=== PATIENT | female | born 1960 | race African-American/Black ===

== ENCOUNTER 2022-02-23 00:16 | Day surgery (SDC) | payer OTHER, SELFPAY ==
[2022-02-17 14:47] VITALS: BMI 46.1
--- NOTE | 2022-02-17 14:54 | PC.NURSE ---
Report to the Outpatient Waiting Room, entrance under the green pavilion located off [facility], at time _0915_ on date _[id number]_. OR Time: _1115_. - You and your visitor will be asked a series of questions to screen for COVID 19 for your protection. - Only one visitor is allowed at this time. - The patient visitor is requested to leave or wait in car when not with patient. - A mask is required within the hospital. Patients may have clear liquids (water, carbonated beverages, clear teas, apple juice) until 3 hours prior to surgery with a maximum of 20 ounces. - No food from midnight until time of surgery Take the following medications with a SIP of water the morning of surgery: ____Metoprolol Medications to discontinue per physician None Date to take last dose Please no make-up, nail yi, hairspray, perfume, deodorant, or body powder the day of surgery. No jewelry (including any body piercings) or valuables the day of surgery, leave them at home. Please take a shower or bath the night before, or the morning of, surgery with an antibacterial soap. Wear comfortable, loose fitting clothing. - Jewelry must be removed prior to entering the operating room. Rings and piercings that are not removed may be cut off. - The hospital will not accept responsibility for valuables. - Please leave all valuables, including medications, at home the day of surgery. If you are going home after surgery, a licensed pole truck driver must drive you home. - NO public transportation without another adult. - We recommend that an adult stay with you for 24 hours following discharge. - We also recommend that you do not drive, make important decision, drink alcoholic beverages, or take any drugs that were not prescribed by your health care provider for at least 24 hours after your discharge time. Follow any additional instructions given to you from your surgeon. If you or anyone in your household have experienced Covid symptoms in the past week, please notify your surgeon or the nurse liaison at the phone number below for possible testing. Telephone instructions given to ___Patient and asked if any additional questions and then verbalized understanding. Patient advised to call surgeon office or pre surgery nurse liaison [phone] if any additional questions.
--- NOTE | 2022-02-23 07:48 | WPDHPUPDATE1 ---
History and Physical Update Update Date/Time: 02/23/22 07:48 History and Physical has been reviewed, including an updated exam of the patient. There are NO changes in the patient's condition. Risks, benefits, and alternatives have been discussed and questions answered. Patient agrees to proceed with procedure.
--- NOTE | 2022-02-23 07:49 | PM.HPGS ---
History of Present Illness History of Present Illness Consent: Risks, benefits, and alternatives have been discussed and questions answered. Patient agrees to proceed with procedure. Chief complaint: Post Menopausal Bleeding Narrative: Josette Davis is a 61 year old female With postmenopausal bleeding. Patient underwent pelvic ultrasound which reveals a thickened endometrium. It was recommended to proceed with D&C hysteroscopy. Risks of infection, bleeding, perforation, and possible pathology were reviewed. Patient voices understanding and agrees to proceed. Review of Systems Review of Systems: not repeated day of surgery; patient states no changes in status PMFSH Past Medical History Medical History (Updated 02/23/22 @ 08:21 by Kendra Logan MD) HTN (hypertension) (normal spontaneous vaginal delivery) X3 Surgical History Surgical History (Updated 02/23/22 @ 08:20 by Kendra Logan MD) H/O exploratory laparotomy With fimbrioplasty and adhesiolysis in the 1980s History of hysteroscopy 2016, 2018 with myomectomy, 2019 with polyps and myomectomy Social History Social History Smoking status: Never smoker Alcohol intake: current Drinks per week: 1 Living arrangements: with family Spiritual care concerns: No Meds Home Medications and Allergies Home Medications Medication Instructions Recorded Confirmed Type losartan 50 mg-hydrochlorothiazide 1 tablet PO QAM 02/17/22 02/17/22 History 12.5 mg tablet metoprolol succinate 25 mg 25 mg PO QAM 02/17/22 02/17/22 History tablet,extended release 24 hr Allergies Allergy/AdvReac Type Severity Reaction Status Date / Time Sulfa (Sulfonamide Allergy Severe HIVES, Verified 02/17/22 14:45 Antibiotics) ITCHING Exam Const: General: healthy appearing and alert Orientation/consciousness: patient oriented x3 GI: GI Palp: Yes Soft to palpation, No Tenderness to palpation present (GI) and No Palpable mass present : External Female Exam: normal external appearance Speculum Exam - Vagina: normal appearance of the vagina and normal vaginal discharge Speculum Exam - Cervix: normal appearance of the cervix Bimanual exam- vagina & uterus: uterine size normal and consistency normal Bimanual Exam- Adnexa, other: normal adnexae and No adnexal tenderness Neuro: General: patient oriented x3 Assessment and Plan Assessment and plan (1) Post-menopausal bleeding: Code(s): N95.0 - Postmenopausal bleeding Status: Acute Assessment and Plan: Plan to proceed with D&C hysteroscopy
[2022-02-23] MEDS: LACTATED RINGERS 1,000 ML 30 ML IV CONT (10:00)
[2022-02-23 10:30] VITALS: BP 135/77; PULSE 78; RESP 16; TEMP 36.3; O2SAT 99
--- NOTE | 2022-02-23 10:37 | P.PNAN_ITS ---
Anes - Initial Pre Proc Eval Procedure: Operation Date: 02/23/22 11:15 Proposed Procedures p Hysteroscopy with Dilation and Curettage - Kendra Logan MD Date/Time: 02/23/22 10:37 Surgeon: Kendra Logan MD Pre Op Diagnosis: Post Menopausal Bleeding Patient Data Age: 61 Gender: F Height: 1.57 m Weight: 114.5 kg Allergies Allergy/AdvReac Type Severity Reaction Status Date / Time Sulfa (Sulfonamide Allergy Severe HIVES, Verified 02/17/22 14:45 Antibiotics) ITCHING Home Medications Medication Instructions Recorded Confirmed Type losartan 50 mg-hydrochlorothiazide 1 tablet PO QAM 02/17/22 02/17/22 History 12.5 mg tablet metoprolol succinate 25 mg 25 mg PO QAM 02/17/22 02/23/22 History tablet,extended release 24 hr Patient hx anesthesia problems: none Family hx anesthesia problems: none Results Review: All pre-operative results and documents have been reviewed as part of the pre- operative evaluation. PMFSH Past Medical History Medical History (Updated 02/23/22 @ 10:37 by Wes Mckeon MD) HTN (hypertension) Morbid obesity (normal spontaneous vaginal delivery) X3 Surgical History Surgical History H/O exploratory laparotomy With fimbrioplasty and adhesiolysis in the 1980s History of hysteroscopy 2016, 2018 with myomectomy, 2019 with polyps and myomectomy Social History Social History Smoking status: Never smoker Alcohol intake: current Drinks per week: 1 Living arrangements: with family Spiritual care concerns: No Anes - Eval Final PreProcedure Day of Procedure 02/23/22 10:37 Patient weight: morbidly obese Heart: regular rate and rhythm Lungs: clear to auscultation Airway: Mallampati scale class II Neurological: alert and oriented Last oral intake: >/= 8 hours ASA classification: III Emergent: no Anesthetic plan: proceed Anesthesia type and monitoring: general GIVS and standard monitoring Results Review: All pre-operative results and documents have been reviewed as part of the pre- operative evaluation. Informed Consent: The patient's anesthetic plan and its attendant risks and benefits were discussed with the patient/family/POA. Questions were solicited and answers provided to the satisfaction of the patient/family/POA.
[2022-02-23] MEDS: ACETAMINOPHEN 500 MG TABLET 1000 MG PO (11:15)
--- NOTE | 2022-02-23 12:13 | P.OP_ITS ---
Procedure Note - Detailed Date of Procedure 02/23/22 Pre-op Diagnosis Post Menopausal Bleeding Post-op Diagnosis Same Procedure Performed D&C hysteroscopy with MyoSure resection of polyp Surgeon Kendra Logan MD Anesthesia MAC and Local Findings Uterus sounds to 9cm. There was a polyp in the left cornu. Small fibroids noted that are sessile and not interfering with visualization. Remainder of the endometrium appears atrophic. Description of Procedure The patient was taken to the operating room and placed under anesthesia in the dorsal lithotomy position. She was prepped and draped in the usual sterile fashion. Cloquet speculum was placed in the vagina and the cervix grasped on the anterior lip with a tenaculum. The cervix is injected in each quadrant with 1% lidocaine. The uterus sounds to 9cm. The cervix is serially dilated to an 8 Hegar. The diagnostic hysteroscope was placed with the above-stated findings. The MyoSure device is opened and placed and the polyp removed under direct visualization. The instruments were removed and the medium sharp curette used to curette the endometrium until a good uterine cry was noted in all areas. Minimal materials obtained consistent with the atrophic appearance. All instruments are removed. Sponge, needle, and instrument counts are correct per the OR staff. Patient is awakened from anesthesia and taken to recovery in stable condition. Estimated Blood Loss 5 Drains No Packing No Pathology Yes (Endometrial shavings and curettings) Complications No immediate complications Condition Stable Disposition PACU
[2022-02-23 12:25] VITALS: BP 139/92; PULSE 72; RESP 16; O2SAT 100
[2022-02-23] MEDS: fentaNYL CITRATE INJ (*CRX) 100 MCG/2 ML VIAL 25 MCG IV PUSH ×2 (12:29→12:32)
[2022-02-23 12:53] VITALS: BP 154/87; PULSE 65; RESP 16
[2022-02-23 13:30] VITALS: BP 154/89; PULSE 61; RESP 14
[2022-02-23] MEDS: oxyCODONE HCL (*CRX) 5 MG TAB IR PO (13:37)
[2022-02-23 14:00] VITALS: BP 134/81; PULSE 61; RESP 12
== END 2022-02-23 14:40 | disposition home or self-care (01) ==
PROVIDERS: Visit Provider Obstetrics & Gynecology Gynecology
PROC: 0U5B8ZZ Destruction of Endometrium, Via Natural or Artificial Opening Endoscopic (ICD-10-PCS; CPT 58563; principal; 2022-02-23 11:15)
DX: N95.0 Postmenopausal bleeding (principal); N84.0 Polyp of corpus uteri; I10 Essential (primary) hypertension; E66.01 Morbid (severe) obesity due to excess calories; Z68.41 Body mass index [BMI] 40.0-44.9, adult
CPT/HCPCS: 58558; 88305; A9270; J2250; J2405; J2704; J3010; J7030; J7120

== ENCOUNTER 2023-08-19 12:46 | Outpatient (CLI) | payer OTHER, SELFPAY ==
[2023-08-19 13:32] LABS: Anion Gap 4 mmol/L (8-16); Blood Urea Nitrogen 10 mg/dL (7-17); Calcium 9.7 mg/dL (8.4-10.2); Carbon Dioxide 29 mmol/L (22-30); Chloride 107 mmol/L (98-107); Estimated Glomerular Filt Rate > 60; Glucose 83 mg/dL (65-110); Potassium 3.9 mmol/L (3.4-5.0); Sodium 140 mmol/L (137-145)
== END 2023-08-19 12:47 | disposition home or self-care (01) ==
LOC: ANHLAB 12:52
PROVIDERS: Visit Provider Anesthesiology
DX: Z01.818 Encounter for other preprocedural examination (principal); I10 Essential (primary) hypertension
CPT/HCPCS: 36415; 80048

== ENCOUNTER 2023-08-23 02:00 | Day surgery (SDC) | payer OTHER, SELFPAY ==
--- NOTE | 2023-08-16 09:31 | PC.NURSE ---
Report to the Outpatient Waiting Room, entrance under the green pavilion located off [facility], at time 0615 on date _08/23/23_. Planned Procedure Time: 08__. Time changes happen often and if your time is changed the preop area will call you the afternoon before. - You and your visitor will be asked to self-screen and do not enter if you have any COVID symptoms. - A mask is optional within the hospital at this time. Patients may have clear liquids (water, carbonated beverages, clear teas, apple juice) until 3 hours prior to surgery with a maximum of 20 ounces. - No food from midnight until time of surgery - Infants may have breast milk until 4 hours before surgery, formula 6 hours prior to surgery. - Children will be allowed to drink immediately following surgery. If applicable, please bring a bottle or sippy cup to assist with drinking. Juice, water, soda, and popsicles are readily available. For infants on formula, please bring formula the day of surgery. Pacifiers are allowed. Take the following medications with a SIP of water the morning of surgery: ___METOPROLOL DO NOT STOP ANY OF YOUR OTHER PRESCRIPTION MEDICATIONS PRIOR TO SURGERY ?EXCEPT THE FOLLOWING Medications to discontinue per physician NONE Date to take last dose Please no make-up, nail azeri, hairspray, perfume, deodorant, or body powder the day of surgery. No jewelry (including any body piercings) or valuables the day of surgery, leave them at home. Please take a shower or bath the night before, or the morning of, surgery with an antibacterial soap. Wear comfortable, loose fitting clothing. Children are encouraged to wear pajamas. - Jewelry must be removed prior to entering the operating room. Rings and piercings that are not removed may be cut off. - The hospital will not accept responsibility for valuables. - Please leave all valuables, including medications, at home the day of surgery. If you are going home after surgery, a licensed milk driver must drive you home. - NO public transportation without another adult if you receive anesthesia. - We recommend that an adult stay with you for 24 hours following discharge. - We also recommend that you do not drive, make important decision, drink alcoholic beverages, or take any drugs that were not prescribed by your health care provider for at least 24 hours after your discharge time. For Pediatric surgeries, we recommend two adults accompany the child home. Follow any additional instructions given to you from your surgeon. If you or anyone in your household have experienced Covid symptoms in the past week, please notify your surgeon or the nurse liaison at the phone number below for possible testing. Telephone instructions given to patient and asked if any additional questions and then verbalized understanding. Patient advised to call surgeon office or pre surgery nurse liaison [phone] if any additional questions.
[2023-08-16 09:36] VITALS: BMI 46.3
[2023-08-23 06:55] VITALS: BP 153/91; PULSE 77; RESP 14; TEMP 36.4; O2SAT 99
[2023-08-23] MEDS: ACETAMINOPHEN 500 MG TABLET 1000 MG PO (06:55)
--- NOTE | 2023-08-23 07:34 | WPDHPUPDATE1 ---
History and Physical Update Update Date/Time: 08/23/23 07:34 History and Physical has been reviewed, including an updated exam of the patient. There are NO changes in the patient's condition. Risks, benefits, and alternatives have been discussed and questions answered. Patient agrees to proceed with procedure.
--- NOTE | 2023-08-23 07:35 | PM.HPGS ---
History of Present Illness History of Present Illness Consent: Risks, benefits, and alternatives have been discussed and questions answered. Patient agrees to proceed with procedure. Chief complaint: postmenopausal bleeding Narrative: Josette Davis is a 63 year old female with postmenopausal bleeding. Patient has undergone D&C hysteroscopy x4 with polyps found at 3 of the. Most recent was February of 2022. Patient has been on Prometrium 300mg. Patient began having bleeding in late May. It was recommended to undergo D&C hysteroscopy to further evaluate the endometrium. Risks of infection, bleeding, perforation, and possible pathology are reviewed. Patient voices understanding and agrees to proceed. Review of Systems Review of Systems: not repeated day of surgery; patient states no changes in status PMFSH Past Medical History Medical History (Updated 08/23/23 @ 07:37 by Kendra Logan MD) HTN (hypertension) Hypercholesterolemia Morbid obesity (normal spontaneous vaginal delivery) X3 Surgical History Surgical History (Updated 08/23/23 @ 07:37 by Kendra Logan MD) H/O exploratory laparotomy With fimbrioplasty and adhesiolysis in the 1980s History of hysteroscopy 2015, 2018 with myomectomy, 2019 with polyps and myomectomy, 2021 with polyps Social History Social History Smoking status: Never smoker Alcohol intake: current Drinks per week: 1 Alcohol use details: 2 PER MONTH Substance use: never Living arrangements: with family Spiritual care concerns: No Meds Home Medications and Allergies Home Medications Medication Instructions Recorded Confirmed Type losartan 50 mg-hydrochlorothiazide 1 tablet PO QAM 02/17/22 08/16/23 History 12.5 mg tablet metoprolol succinate 25 mg 25 mg PO QAM 02/17/22 08/23/23 History tablet,extended release 24 hr Allergies Allergy/AdvReac Type Severity Reaction Status Date / Time Sulfa (Sulfonamide Allergy Severe HIVES, Verified 08/23/23 07:12 Antibiotics) ITCHING Vital Signs Vital Signs - 24 hr 08/23/23 06:55 Temperature 97.5 F L Pulse Rate 77 Respiratory Rate 14 Blood Pressure 153/91 H Pulse Oximetry 99 Oxygen Delivery Room Air Exam Const: General: obese ( BMI of 42.7) Orientation/consciousness: patient oriented x3 Resp: Effort & Inspection: normal respiratory effort : External Female Exam: normal external appearance Speculum Exam - Vagina: normal appearance of the vagina and normal vaginal discharge Speculum Exam - Cervix: normal appearance of the cervix Bimanual exam- vagina & uterus: uterine size normal and consistency normal Bimanual Exam- Adnexa, other: normal adnexae and No adnexal tenderness Neuro: General: patient oriented x3 Assessment and Plan Assessment and plan (1) Post-menopausal bleeding: Code(s): N95.0 - Postmenopausal bleeding Status: Acute Assessment and Plan: with history of polyps the plan is to proceed with D&C hysteroscopy
--- NOTE | 2023-08-23 07:39 | P.PNAN_ITS ---
Anes - Initial Pre Proc Eval Procedure: Operation Date: 08/23/23 08:15 Proposed Procedures p Hysteroscopy Dilation and Curettage - Kendra Logan MD Date/Time: 08/23/23 07:39 Surgeon: Kendra Logan MD Pre Op Diagnosis: postmenopausal bleeding Patient Data Age: 63 Gender: F Height: 1.57 m Weight: 118.4 kg Last Vital Signs Temp 36.4 C L 08/23/23 06:55 Pulse 77 08/23/23 06:55 Resp 14 08/23/23 06:55 BP 153/91 H 08/23/23 06:55 Pulse Ox 99 08/23/23 06:55 O2 Del Method Room Air 08/23/23 06:55 Allergies Allergy/AdvReac Type Severity Reaction Status Date / Time Sulfa (Sulfonamide Allergy Severe HIVES, Verified 08/23/23 07:12 Antibiotics) ITCHING Home Medications Medication Instructions Recorded Confirmed Type losartan 50 mg-hydrochlorothiazide 1 tablet PO QAM 02/17/22 08/16/23 History 12.5 mg tablet metoprolol succinate 25 mg 25 mg PO QAM 02/17/22 08/23/23 History tablet,extended release 24 hr Patient hx anesthesia problems: post op nausea/vomiting Family hx anesthesia problems: none Results Review: All pre-operative results and documents have been reviewed as part of the pre- operative evaluation. PMFSH Past Medical History Medical History (Updated 08/23/23 @ 07:37 by Kendra Logan MD) HTN (hypertension) Hypercholesterolemia Morbid obesity (normal spontaneous vaginal delivery) X3 Surgical History Surgical History (Updated 08/23/23 @ 07:37 by Kendra Logan MD) H/O exploratory laparotomy With fimbrioplasty and adhesiolysis in the 1980s History of hysteroscopy 2016, 2018 with myomectomy, 2019 with polyps and myomectomy, 2021 with polyps Social History Social History Smoking status: Never smoker Alcohol intake: current Drinks per week: 1 Alcohol use details: 2 PER MONTH Substance use: never Living arrangements: with family Spiritual care concerns: No Anes - Eval Final PreProcedure Day of Procedure 08/23/23 07:39 Patient weight: morbidly obese Heart: regular rate and rhythm Lungs: clear to auscultation Airway: Mallampati scale class III Neurological: alert and oriented Last oral intake: >/= 8 hours ASA classification: III Emergent: no Anesthetic plan: proceed Anesthesia type and monitoring: general GIVS and LMA and standard monitoring Results Review: All pre-operative results and documents have been reviewed as part of the pre- operative evaluation. Informed Consent: The patient's anesthetic plan and its attendant risks and benefits were discussed with the patient/family/POA. Questions were solicited and answers provided to the satisfaction of the patient/family/POA.
[2023-08-23] MEDS: KETOROLAC 15 MG/ML VIAL (*BKC) IV PUSH (08:25)
[2023-08-23 09:05] VITALS: BP 137/74; PULSE 70; RESP 16; O2SAT 96
[2023-08-23] MEDS: LACTATED RINGERS 1,000 ML 30 ML IV CONT (09:05)
[2023-08-23 09:35] VITALS: BP 139/66; PULSE 66; RESP 20
[2023-08-23] MEDS: oxyCODONE HCL (*CRX) 5 MG TAB IR PO (09:38)
[2023-08-23 10:00] VITALS: BP 120/60; PULSE 59; RESP 20
[2023-08-23 10:15] VITALS: BP 112/70; PULSE 70; RESP 20
--- NOTE | 2023-08-23 10:39 | P.OP_ITS ---
Procedure Note - Detailed Date of Procedure 08/23/23 Pre-op Diagnosis postmenopausal bleeding Post-op Diagnosis Same Procedure Performed D&C hysteroscopy with myomectomy and polypectomy Surgeon Kendra Logan MD Anesthesia MAC Findings The uterus sounds to 9cm. There is a polyp at the left cornua. There is an anterior sessile fibroid. The remainder of the endometrium appears atrophic. Description of Procedure The patient is taken to the operating room and placed under anesthesia in the dorsal lithotomy position. She was prepped and draped in usual sterile fashion. The bivalve speculum was placed in the vagina and the cervix grasped on the ant erior lip with a tenaculum. The uterus is sounded to 9cm. The diagnostic hysteroscope was placed and with the above-stated findings the Aveeta Flex resection device is opened and placed. The polyp was removed in its entirety. The surface of the fibroid appeared vascular the decision was made to proceed with resection. The surface was resected and as resection continued the fibroid continued to grow into the endometrial cavity. Resection continued until the 3rd 3L bag was hung. Decision was made to stop resection as the port of the fibroid we were and was all very calcified with no vascularity. The hysteroscope was removed and the myoma graspers used to remove several additional pieces of fibroid. The endometrium was then sharply curetted until a good uterine cry was noted in all areas. All instruments are removed. Sponge, needle, and instrument counts are correct per the OR staff. The patient was awakened from anesthesia and taken to recovery in stable condition. Estimated Blood Loss 5 Drains No Packing No Pathology Yes ( Endometrial shavings and curettings) Complications No immediate complications Condition Stable Disposition PACU
== END 2023-08-23 10:31 | disposition home health service (06) ==
PROVIDERS: Visit Provider Obstetrics & Gynecology Gynecology
PROC: 0U5B8ZZ Destruction of Endometrium, Via Natural or Artificial Opening Endoscopic (ICD-10-PCS; CPT 58563; principal; 2023-08-23 08:15)
DX: N95.0 Postmenopausal bleeding (principal); N84.0 Polyp of corpus uteri; D25.9 Leiomyoma of uterus, unspecified; I10 Essential (primary) hypertension; E78.00 Pure hypercholesterolemia, unspecified; E66.01 Morbid (severe) obesity due to excess calories; Z68.42 Body mass index [BMI] 45.0-49.9, adult; Z98.890 Other specified postprocedural states
CPT/HCPCS: 58558; 36415; 80048; 88305; A9270; J1100; J1885; J2250; J2405; J2704; J3010; J7120

== ENCOUNTER 2025-01-29 01:04 | Day surgery (SDC) | payer OTHER, SELFPAY ==
[2025-01-23 14:56] VITALS: BMI 44.4
--- NOTE | 2025-01-23 15:28 | PC.NURSE ---
Report to the Outpatient Waiting Room, entrance under the green pavilion located off [facility], at time _0745 on date _01/29/25 . Planned Procedure Time: _0945 .? Time changes happen often and if your time is changed the preop area will call you the afternoon before. - You and your visitor will be asked to self-screen and do not enter if you have any COVID symptoms. Please call surgeon if you need to reschedule. - A mask is optional within the hospital at this time. Patients may have clear liquids (water, carbonated beverages, clear teas, apple juice) until 3 hours prior to surgery with a maximum of 20 ounces. - No food from midnight until time of surgery and no smoking, or chewing tobacco (or any form of nicotine). No chewing gum, candy or mints. Take only the following medications with a SIP of water on the morning of surgery: ___METOPROLOL DO NOT STOP ANY OF YOUR OTHER PRESCRIPTION MEDICATIONS PRIOR TO SURGERY EXCEPT THE FOLLOWING Hold all vitamins and supplements for 3 days per anesthesiologist. Medications to discontinue per physician N/A Date to take last dose__N/A Please no make-up, nail khmer, hairspray, perfume, deodorant, or body powder the day of surgery.? No jewelry (including any body piercings) or valuables the day of surgery, leave them at home.? Please take a shower or bath the night before, or the morning of, surgery with an antibacterial soap.? Wear comfortable, loose fitting clothing.? - Jewelry must be removed prior to entering the operating room.? Rings and piercings that are not removed may be cut off. - The hospital will not accept responsibility for valuables.? - Please leave all valuables, including medications, at home the day of surgery. If you are going home after surgery, a licensed racing car driver must drive you home.? - NO public transportation without another adult if you receive anesthesia. - We recommend that an adult stay with you for 24 hours following discharge. - We also recommend that you do not drive, make important decision, drink alcoholic beverages, or take any drugs that were not prescribed by your health care provider for at least 24 hours after your discharge time. Follow any additional instructions given to you from your surgeon. Telephone instructions given to __NORMA and asked if any additional questions and then verbalized understanding. Patient advised to call surgeon office or pre surgery nurse liaison [phone] if any additional questions.
--- OUTSIDE RECORDS SUMMARY | 2025-01-29 01:07 | XMS_ITS | Referral Summary ---
Author Organization [address] Address [address] [address] Care Team Providers Care Home Appliances Mechanic Name Role Phone Tana Allen Primary Care Provider [phone] Ezra Ventura MD Unavailable [phone] Jesus Barreto MD Unavailable [phone] Bry Mosqueda MD Unavailable [phone] Kendra Logan MD Unavailable [phone] Encounters Date Type Department Care Team Description 01/26/2025 8:07 AM CDT - 01/26/2025 11:59 PM CDT Hospital Encounter [facility] Building [address] [place] [address] Hypertension, essential Discharge Disposition: Discharge to home or self care 01/25/2025 Results Follow-Up [facility] [address] [address] Tana Allen PA CBC with auto differential, Comprehensive metabolic panel, Differential, auto, Additional followed-up results: 2 01/25/2025 10:[address] [facility] Building [address] [place] [id number] Arrived 01/25/2025 10:25 AM CDT Lab [facility] Office Building [address] [place] [id number] Hypertension, essential; Mixed hyperlipidemia from Last 3 Months Allergies Active Allergy Reactions Criticality Noted Date Comments Sulfa (Sulfonamide Antibiotics) Itching,Rash Medium Medications hydroCHLOROthia zide 12.5 mg tabletIndicatio ns:Hypertension , essential TAKE 0.5 TABLETS BY MOUTH DAILY. 45 tablet 12/22/2024 Active losartan (COZAAR) 50 mg tablet TAKE 1 TABLET BY MOUTH EVERY DAY 90 tablet 12/22/2024 Active metoprolol XL (TOPROL-XL) 25 mg extended release tabletIndicatio ns:hypertension Take 1 tablet (25 mg total) by mouth daily after lunch 90 tablet 1 12/22/2024 Active Active Problems Problem Noted Date Diagnosed Date Diverticulosis 05/11/2024 Class 3 severe obesity due t o excess calories with serious comorbidity and body mass index (BMI) of 40.0 to 44.9 in adult 01/06/2021 Assessment & Plan (03/25/2023 9:19 AM CDT): Reviewed BMI Focus on healthy diet options Work on healthy changes Assessment & Plan (02/09/2022 12:15 PM CDT): Reviewed BMI Focus on healthy diet options Work on healthy changes Assessment & Plan (01/06/2021 11:22 AM CDT): Reviewed BMI Focus on healthy diet options Work on healthy changes Hypertension, essential 01/03/2021 Assessment & Plan (09/26/2024 11:38 AM CDT): Chronic. Patient reports side effects of hydrochlorothiazide. Will reduce hydrochlorothiazide to 6.25 mg daily. Continue losartan 50 mg daily and metoprolol XL 25 mg daily. Follow-up in 1 month for blood pressure check/annual physical. Get labs done prior to that visit. Patient voiced agreement with this plan. Orders: hydroCHLOROthiazide 12.5 mg tablet; Take 0.5 tablets (6.25 mg total) by mouth daily CBC with auto differential; Future Comprehensive metabolic panel; Future Lipid panel; Future Albumin Creatinine Ratio, Urine; Future Assessment & Plan (03/25/2023 9:19 AM CDT): Chronic and controlled. Continue current management. Work on healthy low-salt diet. Increase physical activity. Labs ordered. Assessment & Plan (02/09/2022 4:16 PM CDT): Blood pressure today is well controlled. I have asked her to keep track of her blood pressure daily for the next 2 weeks. She will then send me her blood pressure log to review. If she is continuing to have elevated readings will adjust her medication. Get at least 150 minutes of exercise per week. Labs reviewed today. Assessment & Plan (01/06/2021 11:22 AM CDT): Blood pressure well controlled on current regimen. Continue current medication. Patient denies needing a refill today. She is up-to-date on labs. Continue with low-salt diet. Mixed hyperlipidemia 01/03/2021 Assessment & Plan (09/26/2024 11:38 AM CDT): Chronic and improved on last labs. Due for repeat, ordered today. Follow-up next month at annual physical. Orders: CBC with auto differential; Future Comprehensive metabolic panel; Future Lipid panel; Future Assessment & Plan (03/25/2023 9:23 AM CDT): Patient declines statin therapy. Discussed that since her LDL is above 190 it is advised to take a statin to lower risk of cardiovascular disease. Discussed that her ASCVD risk score is 9.3%. Patient understands the risks of not taking a statin. Discussed following a healthy low-fat diet. Get at least 150 minutes of exercise per week. Labs ordered today. Assessment & Plan (02/09/2022 4:21 PM CDT): Chronic and uncontrolled. LDL significantly elevated at 213. Discussed with patient that when elevated >190 it is recommended to start high intensity statin. Patient was agreeable. Side effects discussed. Will recheck lipid panel and LFTs in 3 months. Discussed healthy diet changes. Get at least 150 minutes of exercise per week. Assessment & Plan (01/06/2021 11:28 AM CDT): Chronic and worsening. Discussed with patient that based on her lab results it is strongly advised that she be started on statin therapy. Patient voiced understanding of this but wishes to continue with diet and exercise. Patient states she has lost 12 lb. Patient agreeable to rechecking labs in 1 month (3 months from when last checked). If labs are still elevated then she will consider statin therapy. Patient understands that she is at a high risk for cardiovascular events including heart attack and stroke. Discussed lifestyle changes including getting at least 150 minutes of exercise per week. Cut back on red meats. Vitamin D deficiency 01/03/2021 Assessment & Plan (03/25/2023 9:22 AM CDT): Patient requesting lab order. Assessment & Plan (02/09/2022 4:25 PM CDT): Recommend daily vitamin D3 2000 IU supplement. We will check vitamin-D level in 3 months. Assessment & Plan (01/06/2021 11:24 AM CDT): Discussed with patient that her most recent vitamin-D level was 27. Although this is in the normal range, ideally it should be above 40. She will start taking the once weekly supplement again. Resolved Problems Problem Noted Date Diagnosed Date Resolved Date Diverticulitis 05/18/2024 06/05/2024 Routine adult health maintenance 01/03/2021 10/15/2024 Overview (05/17/2024): Health Maintenance: -PCV20: N/A -Tdap vaccine: 2020 -Influenza vaccine: due -Shingles vaccine: due -Colonoscopy: 01/07/2022 (5 year recall), 04/27/24 -Last WWE: 12/04/22 (SOIL CHECKER Dr. Logan) -Last Mammogram: 02/08/23 -Last DEXA: 12/11/21 -Last eye exam: N/A -Last MHA: N/A Assessment & Plan (03/25/2023 9:22 AM CDT): Health Maintenance: -PCV20: N/A -Tdap vaccine: 2020 -Influenza vaccine: due -Shingles vaccine: due -Colonoscopy: 01/07/2022 (5 year recall) -Last WWE: 12/2022 (SOIL CHECKER Dr. Logan) -Last Mammogram: 02/08/23 -Last DEXA: 12/11/21 -Last eye exam: N/A -Last MHA: N/A Patient due for flu and Shingrix. Declines vaccines today. Annual labs ordered. Work on healthy diet and exercise habits. See us annually for routine physicals. Assessment & Plan (02/09/2022 4:26 PM CDT): Health Maintenance: -PCV13 vaccine: N/A -PPSV23 vaccine: N/A -Tdap vaccine: 2020 -Influenza vaccine: due -Shingles vaccine: due -Colonoscopy: 01/2022 -Last WWE: 10/2020 (SOIL CHECKER) -Last Mammogram: 01/26/22 -Last DEXA: 12/11/21 -Last eye exam: N/A -Last MHA: N/A Patient due for Shingrix. She would like to hold off on this as she is planning to get her COVID booster soon. Will request her colonoscopy and Pap smear reports. Annual labs reviewed today. Discussed healthy diet and exercise changes. Assessment & Plan (01/06/2021 11:23 AM CDT): Health Maintenance: -PCV13 vaccine: N/A -PPSV23 vaccine: N/A -Tdap vaccine: 2020 -Influenza vaccine: due -Shingles vaccine: due -Colonoscopy: 2019 (Dr. Teixeira) -Last WWE: 10/2020 (SOIL CHECKER) -Last Mammogram: 01/16/20, has next one scheduled -Last DEXA: N/A -Last eye exam: N/A -Last MHA: N/A Patient due for Tdap, she was agreeable to getting this today. We discussed the Shingrix vaccine, she does not wish to get this today. She is up-to-date on colonoscopy. Will request report. She is due for mammogram next month, she has this scheduled already. She is up-to-date on Pap smear. Immunizations Immunization Administration Dates Next Due Influenza, Unspecified 05/11/2024(Deferr ed: Patient Refused),03/25/2023(Deferred: Patient Refused),04/11/2022(Deferred: Patient Refused),04/11/2021(Deferred: Patient Refused),04/11/2020(Deferred: Patient Refused) MMR 01/18/2006,05/16/1992 Meningococcal MCV4P (Menactra) 10/16/1985 OPV 02/08/1989,10/19/1986,11/21/1985 PPD TEST 03/03/2013, 8,08/30/2007,09/06/2006,0 12/15/2005,11/14/2005,05/20/2004,11/12/1999,,10/12/1995,01/03/1992,05/18/1989,09/1985 TD Preservative Free 06/22/1996,10/16/1985 Td, adsorbed 12/16/2003 Tdap 01/06/2021,03/03/2013 Typhoid Inactivated 01/20/1987 Social History Tobacco Use Types Packs/Day Years Used Date Smoking Tobacco: Never Passive Smoke Exposure: Never Smokeless Tobacco: Never Tobacco Cessation:Counseling Given: Not Answered AUDIT-C Answer Date Recorded Q1: How often do you have a drink containing alc ohol? Monthly or less 09/26/2024 Q2: How many drinks containi ng alcohol do you have on a typical day when you are drinking? 1 or 2 09/26/2024 Q3: How often do you have si x or more drinks on one occasion? Never 09/26/2024 PHQ-2 Answer Date Recorded PHQ-2 Total Score (If total score is 3 or more points, staff should administer the PHQ-9) 0 09/26/2024 Personal Safety Answer Date Recorded Have you ever been in or are you currently in a harmful physical or emotional relationship or is someone making you feel afraid or unsafe? 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 Gender Identity Not on file Sexual Orientation Not on file Last Filed Vital Signs Vital Sign Reading Time Taken Comments Blood Pressure 132/84 10/13/2024 9:23 AM CDT Pulse 86 09/26/2024 11:08 AM CDT Temperature 36.6 C (97.9 F) 09/26/2024 11:08 AM CDT Respiratory Rate 16 09/26/2024 11:08 AM CDT Oxygen Saturation 97% 09/26/2024 11:08 AM CDT Inhaled Oxygen Concentration - - Weight 111.1 kg (245 lb) 10/13/2024 9:23 AM CDT Height 157.5 cm (5' 2.01) 10/13/2024 9:23 AM CD T Body Mass Index 44.8 10/13/2024 9:23 AM CDT Plan of Treatment Not on file Goals Goal Patient Goal Type Associated Problems Recent Progress Patient-Stated? Author Colorectal Pre-Surgical Steps Care Plan Colorectal Pre-Surgical Plan Bere Stephens RN Procedures Procedure Name Priority Date/Time Associated Diagnosis Comments DIFFERENTIAL AUTO Routine 01/25/2025 10: 46 AM CDT Hypertension, essential Mixed hyperlipidemia CBC WITH AUTO DIFFERENTIAL Routine 01/25/2025 10:46 AM CDT Hypertension, essential Mixed hyperlipidemia EGFR Routine 01/25/2025 10:40 AM CDT Hypertension, essential Mixed hyperlipidemia LIPID PANEL Routine 01/25/2025 10:40 AM CDT Hypertension, essential Mixed hyperlipidemia COMPREHENSIVE METABOLIC PANEL Routine 01/25/2025 10:40 AM CDT Hypertension, essential Mixed hyperlipidemia ALBUMIN CREATININE RATIO, URINE Routine 01/25/2025 7:40 AM CDT Hypertension, essential HEPATITIS C ANTIBODY Routine 10/15/2023 10:26 AM CDT Routine adult health maintenance Need for hepatitis C screening test HM MAMMOGRAPHY Routine 02/08/2023 HM PAP SMEAR Routine 12/04/2022 COLONOSCOPY Routine 01/07/2022 from Last 3 Months or Most Recently Relevant to Health Maintenance Results * Differential, auto (01/25/2025 10:46 AM CDT) Neutrophil abs 5.12 1.50 - 6.50 K/cumm Comment:Testing performed by : [address] [address] Imm gran abs 0.03 0.00 - 0.10 K/cumm [facility] Comment:Testing performed by : [address] [address] Lymphocyte abs 2.58 0.80 - 3.30 K/cumm [facility] Comment:Testing performed by : [address] [address] Monocyte abs 0.72 0.20 - 0.80 K/cumm [facility] Comment:Testing performed by : [address] [address] Eosinophil abs 0.15 0.00 - 0.50 K/cumm [facility] Comment:Testing performed by : [address] [address] Basophil abs 0.05 0.00 - 0.10 K/cumm [facility] Comment:Testing performed by : [address] [address] Neutrophil pct 59.3 % [facility] Comment: Interpretive Data Percent cell count reference ranges are not reported, since discordance with absolute values may lead to misinterpretation of CBC data. Current Interpretive Data was last revised on 2017. Testing performed by: [address] [address] Imm gran pct 0.3 % [facility] Comment: Interpretive Data Percent cell count reference ranges are not reported, since discordance with absolute values may lead to misinterpretation of CBC data. Current Interpretive Data was last revised on 2017. Testing performed by: [address] [address] Lymphocyte pct 29.8 % [facility] Comment: Interpretive Data Percent cell count reference ranges are not reported, since discordance with absolute values may lead to misinterpretation of CBC data. Current Interpretive Data was last revised on 2017. Testing performed by: [address] [place]., [address] Monocyte pct 8.3 % [facility] Comment: Interpretive Data Percent cell count reference ranges are not reported, since discordance with absolute values may lead to misinterpretation of CBC data. Current Interpretive Data was last revised on 2017. Testing performed by: [address] [address] Eosinophil pct 1.7 % [facility] Comment: Interpretive Data Percent cell count reference ranges are not reported, since discordance with absolute values may lead to misinterpretation of CBC data. Current Interpretive Data was last revised on 2017. Testing performed by: [address] [address] Basophil pct 0.6 % [facility] Comment: Interpretive Data Percent cell count reference ranges are not reported, since discordance with absolute values may lead to misinterpretation of CBC data. Current Interpretive Data was last revised on 2017. Testing performed by: [address] [address] Blood 01/25/2025 10:4 6 AM CDT 01/25/2025 12:48 PM CDT Tana PATTERSON LAB BLOOD ORDERABLES Halie l Result [facility] [address] [facility] Department [place] [address] * (ABNORMAL) CBC with auto differential (01/25/2025 10:46 AM CDT) Pathologist [facility] WBC 8.65 3.80 - 9.90 K/cumm Comment:Testing performed by : [address] [address] Hgb 14.1 11.9 - 15.5 g/dL [facility] Comment:Testing performed by : [address] [address] Hct 45.3 35.6 - 45.5 % [facility] Comment:Testing performed by : [address] [address] Plt 262 150 - 400 K/cumm [facility] Comment:Testing performed by : [address] [address] MPV 11.9 9.1 - 12.3 fL [facility] Comment:Testing performed by : [address] [address] RBC 5.54(H) 3.90 - 5.20 M/cumm [facility] Comment:Testing performed by : [address] [address] MCV 81.8 81.3 - 96.4 fL [facility] Comment:Testing performed by : [address] [address] MCH 25.5(L) 27.1 - 33.3 pg [facility] Comment:Testing performed by : [address] [address] MCHC 31.1(L) 32.3 - 35.7 g/dL [facility] Comment:Testing performed by : [address] [address] RDW CV 15.4(H) 11.1 - 14.9 % [facility] Comment:Testing performed by : [address], [address] RDW SD 45.8 35.7 - 48.1 fL [facility] Comment:Testing performed by : [address] [address] NRBC abs 0.00 0.00 - 0.01 K/cumm [facility] Comment:Testing performed by : [address] [address] Blood 01/25/2025 10:4 6 AM CDT 01/25/2025 12:48 PM CDT us Tana PATTERSON LAB BLOOD ORDERABLES Halie l Result [facility] [address] [facility] Department of Laboratories [place], [place] [id number] * eGFR (01/25/2025 10:40 AM CDT) eGFR 89 >=60 mL/min/1. 73 m2 Comment: Interpretive Data Reference Interval Normal >/= 90 mL/min/1.73m2 Mildly decreased* 60 - 89 mL/min/1.73m2 Mildly to moderately decreased 45 - 59 mL/min/1.73m2 Moderately to severely decreased 30 - 44 mL/min/1.73m2 Severely decreased 15 - 29 mL/min/1.73m2 Kidney Failure < 15 mL/min/1.73m2 *Relative to young adult level Estimated glomerular filtration rate is determined by the 2020 CKD-EPI equation recommended by the National Kidney Foundation (A Unifying Approach to GFR Estimation: Recommendations of the NKF-ASK Task Force on Reassessing the Inclusion of Race in Diagnosing Kidney Disease, JASN 2020). The CKD-EPI equation should not be used for patients with unstable renal function and has not been validated in children and those over 70. Current interpretive data was last reviewed 2021. Testing performed by: [facility], [address] [place] [address]., [address] Blood 01/25/2025 10:4 0 AM CDT 01/25/2025 12:44 PM CDT Tana PATTERSON LAB BLOOD ORDERABLES Halie box Result [facility] [address] [facility] Department [place] [address] * (ABNORMAL) Lipid panel (01/25/2025 10:40 AM CDT) Cholesterol 248(H) 30 - 199 mg/dL Comment: Interpretive Data Ages < or = 19 years Acceptable: <170 mg/dL Borderline high: 170-199 mg/dL High: >or= 200 mg/dL Ages > or = 20 years Desirable: <200 mg/dL Borderline high: 200-239 mg/dL High: >or= 240 mg/dL Literature References: 1. Expert Panel on Integrated Guidelines for Cardiovascular Health and Risk Reduction in Children and Adolescents. Pediatrics 2011;128:S213 2. NCEP Expert Panel. Circulation 2004;110:227 Current Interpretive Data was last revised on 2018. Testing performed by: [address] [address] Triglycerides 116 <=149 mg/dL [facility] Comment: Interpretive Data Ages < or = 9 years Acceptable: <75 mg/dL Borderline high: 75-99 mg/dL High: >or= 100 mg/dL Ages 10 to 20 years Acceptable: <90 mg/dL Borderline high: 90-129 mg/dL High: >or= 130 mg/dL Ages > or = 20 years Desirable: <150 mg/dL Borderline high: 150-199 mg/dL High: 200-499 mg/dL Very high: >or= 499 mg/dL Literature References: 1. Expert Panel on Integrated Guidelines for Cardiovascular Health and Risk Reduction in Children and Adolescents. Pediatrics 2011;128:S213 2. NCEP Expert Panel. Circulation 2004;110:227 Current Interpretive Data was last revised on 2018. Testing performed by: [address] [address] HDL 46 >=40 mg/dL [facility] Comment: Interpretive Data Ages < or = 19 years Acceptable: >45 mg/dL Borderline low: 40-45 mg/dL Low: <40 mg/dL Ages > or = 20 years Desirable: >or= 60 mg/dL Low: <40 mg/dL Literature References: 1. Expert Panel on Integrated Guidelines for Cardiovascular Health and Risk Reduction in Children and Adolescents. Pediatrics 2011;128:S213 2. NCEP Expert Panel. Circulation 2004;110:227 Current Interpretive Data was last revised on 2018. Testing performed by: [address] [address] LDL, calculated 181(H) <=129 mg/dL [facility] Comment: Interpretive Data Ages < or = 19 years Acceptable: <110 mg/dL Borderline high: 110-129 mg/dL High: >or= 130 mg/dL Ages > or = 20 years Optimal: <100 mg/dL Near optimal: 100-129 mg/dL Borderline high: 130-159 mg/dL High: >160 mg/dL Calculated using the Simpson LDL-C estimating equation. This equation was implemented on 2024. Prior to this date LDL-C was estimated using the Friedewald equation. Literature References: 1. Expert Panel on Integrated Guidelines for Cardiovascular Health and Risk Reduction in Children and Adolescents. Pediatrics 2011;128:S213 2. NCEP Expert Panel. Circulation 2004;110:227 3. Calvin Cerna et al. SAKINA Cardiol. 2020 November 09;5(5):540-548. doi: 10.1001/[email or web address].2020.0013 Current Interpretive Data was last revised on 2024. Testing performed by: [address] [address] Non-HDL Cholesterol 202 mg/dL [facility] AMARAL Comment: Interpretive Data Ages < or = 19 years Acceptable: <120 mg/dL Borderline high: 120-144 mg/dL High: >145 mg/dL Ages > or = 20 years When triglycerides are >200 mg/dL, Non-HDL cholesterol is a secondary target of therapy with treatment goals that are 30 mg/dL greater than the LDL cholesterol target. Literature References: 1. Expert Panel on Integrated Guidelines for Cardiovascular Health and Risk Reduction in Children and Adolescents. Pediatrics 2011;128:S213 2. NCEP Expert Panel. Circulation 2004;110:227 Current Interpretive Data was last revised on 2018. Testing performed by: [address] [address] Chol/HDL ratio 5 [facility] Comment:Testing performed by : [address] [address] Blood 01/25/2025 10:4 0 AM CDT 01/25/2025 12:44 PM CDT us Wes Mckeon MD LAB BLOOD ORDERABLES Final Re sult [facility] [address] [facility] Department [place] [address] * Comprehensive metabolic panel (01/25/2025 10:40 AM CDT) [facility] Sodium 142 135 - 145 mmol/L Comment:Testing performed by : [address] [address] Potassium, pl 4.3 3.3 - 4.9 mmol/L JAIME Comment:Testing performed by : [address] [address] Chloride 107 97 - 110 mmol/L JAIME Comment:Testing performed by : [address], [place]., [address] CO2 27 22 - 32 mmol/L [facility] Comment:Testing performed by : [address], [place]., [address] Anion gap 8 2 - 15 mmol/L [facility] Comment:Testing performed by : [address], [place]., [address] BUN 12 6 - 25 mg/dL [facility]IME Comment:Testing performed by : [address], [place]., [address] Creatinine 0.76 0.60 - 1.10 mg/dL [facility] Comment:Testing performed by : [address] [address] Glucose 80 70 - 199 mg/dL JAIME Comment: Interpretive Data Fasting glucose >/= 126 mg/dl is diagnostic for diabetes. Fasting is defined as no caloric intake for at least 8 hours. Fasting glucose between 100 mg/dl to 125 mg/dl is diagnostic of prediabetes. In a patient with classic symptoms of hyperglycemia or hyperglycemic crisis, a random glucose >/= 200 mg/dl is diagnostic for diabetes. In the absence of unequivocal hyperglycemia, results should be confirmed by repeat testing. The classification and Diagnosis of Diabetes Diabetes Care 202; 46: S19-S40. Current interpretive data was last revised 2022. Testing performed by: [address] [address] Calcium 10.1 8.5 - 10.3 mg/dL [facility] Comment:Testing performed by : [address] [address] Bilirubin, total 0.4 0.1 - 1.2 mg/dL [facility] Comment:Testing performed by : [address] [address] Protein, pl 7.3 6.5 - 8.5 g/dL [facility] Comment:Testing performed by : [address], [place]., [address] Albumin 3.7 3.5 - 5.0 g/dL [facility] Comment:Testing performed by : [address] [address] Alk phos 101 40 - 130 Units/L [facility] Comment:Testing performed by : [address] [address] ALT 16 7 - 45 Units/L [facility] Comment:Testing performed by : [address] [address] AST 23 10 - 45 Units/L [facility] Comment:Testing performed by : [address] [address] Blood 01/25/2025 10:4 0 AM CDT 01/25/2025 12:44 PM CDT Tana PATTERSON LAB BLOOD ORDERABLES Halie l Result [facility] [address] [facility] Department [place] [address] * Albumin Creatinine Ratio, Urine (01/25/2025 7:40 AM CDT) Albumin Ur <12.0 mg/L Comment: Interpretive Data No reference range established. Current interpretive data was last revised 2018. Testing performed by: [address] [address] Creatinine Ur 122.0 mg/dL JAIME Comment: Interpretive Data No reference range established. Current interpretive data was last revised 2018. Testing performed by: [address] [address] Albumin Creatinine Ratio, Ur <10 1 - 29 mg/g [facility] Comment:Testing performed by : [address] [address] Urine 01/25/2025 7:40 AM CDT 01/26/2025 8:49 AM CDT Tana PATTERSON LAB URINE ORDERABLES Halie l Result Performing Organization Address [facility] Co de Phone Number JAIME [address] [address] * Hepatitis C antibody Blood (10/15/2023 10:26 AM CDT) Hep C Ab Nonreactive Nonreactive Comment: Antibodies to HCV not detected. Does NOT exclude the possibility of recent exposure to HCV. Current interpretive data was last revised on 22 Interpretive Data Nonreactive: Antibodies to HCV not detected. Does NOT exclude the possibility of recent exposure to HCV. Equivocal: Equivocal for HCV antibodies. Supplemental molecular testing will be automatically performed to determine infection status in accordance with current CDC screening recommendations. Reactive: Positive for HCV antibodies. This may represent current or past HCV infection. Supplemental molecular testing will be automatically performed to determine current infection status in accordance with current CDC screening recommendations. Interpretive data was last revised on 2019. Blood 10/15/2023 10:2 6 AM CDT 10/15/2023 12:53 PM CDT Result [facility] Tana PATTERSON LAB MICROBIOLOGY - GENERA L ORDERABLES Final Result Performing Organization Address [facility] de Phone Number JAIME [address] [place] [address] * HM MAMMOGRAPHY (02/08/2023) Historical Provider HEALTH MAINTENANCE Final Result * HM PAP SMEAR (12/04/2022) Historical Provider HEALTH MAINTENANCE Final Result * Colonoscopy (01/07/2022) Anatomical Region Laterality Modality Other Historical Provider ENDOSCOPY PROCEDURES Halie l Result from Last 3 Months or Most Recently Relevant to Health Maintenance Additional Health Concerns Active Problems Noted Date Diagnosed Date Colorectal Pre-Surgical Plan 05/19/2024 Insurance [facility] [facility] [facility] [place] [address] [facility] Advance Directives For more information, please contact: [phone] * Full Code (Latest Code Status on File) Date Activated Date Inactivated Comments 06/01/2024 3:41 PM 06/05/2024 2:35 PM Care Teams Home Appliances Mechanic Relationship Specialty Start Date End Date Tana Allen PA [address] [place] [id number] PCP - General Family Medicine 01/02/21 Ezra Ventura MD [address] [place] [address] Consulting Physician Family Medicine 01/02/21 Jesus Barreto MD [address] [address] Referring Physician Gastroenterology 05/01/24 Bry Mosqueda MD [phone] [place] [address] Surgeon Colon and Rectal Surgery 05/16/24 Kendra Logan MD [address] [address] Gynecology 06/23/24
--- OUTSIDE RECORDS SUMMARY | 2025-01-29 01:07 | XMS_ITS | Clinical Summary ---
Author Organization [address] Address [address] [place] [id number] Care Team Providers Care Him Director Name Role Phone Tana Allen Primary Care Provider [phone] Ezra Ventura MD Unavailable [phone]- [phone] Jesus Barreto MD Unavailable [phone] Bry Mosqueda MD Unavailable [phone] Kendra Logan MD Unavailable [phone] Allergies Active Allergy Reactions Criticality Noted Date [...] (5 year recall), 04/27/24 -Last WWE: 12/04/22 (PIECE WORK INSPECTOR Dr. Logan) -Last Mammogram: 02/08/23 -Last DEXA: 12/11/21 -Last eye exam: N/A -Last MHA: N/A Assessment & Plan (03/25/2023 9:22 AM CDT): Health Maintenance: -PCV20: N/A -Tdap vaccine: 2020 -Influenza vaccine: due -Shingles vaccine: due -Colonoscopy: 01/07/2022 (5 year recall) -Last WWE: 12/2022 (PIECE WORK INSPECTOR Dr. Logan) -Last Mammogram: 02/08/23 -Last DEXA: [...] vaccine: due -Colonoscopy: 01/2022 -Last WWE: 10/2020 (PIECE WORK INSPECTOR) -Last Mammogram: 01/26/22 -Last DEXA: 12/11/21 -Last [...] -Colonoscopy: 2019 (Dr. Teixeira) -Last WWE: 10/2020 (PIECE WORK INSPECTOR) -Last Mammogram: 01/16/20, has next one scheduled [...] already. She is up-to-date on Pap smear. Encounters Date Type Department Care Team Description 01/26/2025 8:07 AM CDT - 01/26/2025 11:59 PM CDT Hospital Encounter [place] [address] [place] [address] Hypertension, essential Discharge Disposition: Discharge to home or self care 01/25/2025 10:40 AM CDT Lab [place] [facility] [address] [place] [address] Arrived 01/25/2025 10:25 AM CDT Lab [place] [facility] [address] [place] [address] Hypertension, essential; Mixed hyperlipidemia 01/25/2025 Results Follow-Up [facility] [address] [phone] Tana Allen PA CBC with auto differential, Comprehensive metabolic panel, Differential, auto, Additional followed-up results: 2 from Last 3 Months Immunizations Immunization Administration Dates Next Due Influenza, Unspecified 05/11/2024(Deferr ed: Patient Refused),03/25/2023(Deferred: Patient Refused),04/11/2022(Deferred: Patient Refused),04/11/2021(Deferred: Patient Refused),04/11/2020(Deferred: Patient Refused) MMR 01/18/2006,05/16/1992 Meningococcal MCV4P (Menactra) 10/16/1985 OPV 02/08/1989,10/19/1986,11/21/1985 PPD TEST 03/03/2013, 8,08/30/2007,09/06/2006,0 12/15/2005,11/14/2005,05/20/2004,11/12/1999,,10/12/1995,01/03/1992,05/18/1989,09/1985 TD Preservative Free 06/22/1996,10/16/1985 Td, adsorbed 12/16/2003 Tdap 01/06/2021,03/03/2013 Typhoid Inactivated 01/20/1987 Surgical History Surgery Date Site/Laterality Comments GALLBLADDER SURGERY UTERINE FIBROID SURGERY x2 LAPAROSCOPIC COLON RESECTION 06/01/2024 Laparoscopic sigmoid colectomy and right ovarian cystectomy LAPAROSCOPIC OVARIAN CYSTECTOMY 06/01/2024 Right Laparoscopic sigmoid colectomy and right ovarian cystectomy CHOLECYSTECTOMY Medical History Medical History Date Comments Hypertension Fibroids PONV (postoperative nausea and vomiting) after 3 surgeries Diverticulitis 05/18/2024 Infection Family History Medical History Relation Name Comments Stomach cancer Father Heart disease Mother Angelita Anesthesia problems Neg Hx Breast cancer Neg Hx Colon cancer Neg Hx Malig Hyperthermia Neg Hx Ovarian cancer Neg Hx Pseudochol deficiency Neg Hx Uterine cancer Neg Hx Relation Name Status Comments Father Mother [place] Social History Tobacco Use Types Packs/Day Years [...] on file Legal Sex 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 Gender Identity Not on file Sexual Orientation Not on file Obstetrics History Para Term AB IAB SAB Ectopic Multiple Livin g Live Births 2 2 2 1 3 3 Date Outcome GA Total Labor Labor/2nd/3rd Weight Sex Type Anes PTL Vidya A1 A5 Name Clin Term Vag-S pont Living Term Vag-S pont Living Term Vag-S pont Living Comments Menarche: 14 Age at first delivery: 18 Menopause: 59 Last Filed Vital Signs Vital Sign Reading [...] 10/13/2024 9:23 AM CDT Plan of Treatment Health Maintenance Due Date Last Done Comments Hepatitis B Screening 1980 Zoster Vaccine (1 of 2) 2012 Cervical Cancer Screening 12/05/2023 12/04/2022, Covid-19 Vaccine ( season) 2024 11/12/2020, 10/15/2020 Regular Well Visit/Exam 18-64 03/25/2024 03/25/2023, 02/09/2022 Influenza Vaccine (#1) 2025 Breast Cancer Screening-Mammogram 08/17/2025 08/17/2024, 08/17/2024, 08/05/2023, Additional history exists Depression Screening 09/26/2025 09/26/2024, 05/11/2024, 03/25/2023, Additional history exists DTaP/Tdap/Td Vaccine (3 - Td or Tdap) 01/06/2031 01/06/2021, 03/03/2013, 12/16/2003, Additional history exists Colon Cancer Screening-Colonoscopy 01/08/2032 01/07/2022 Colon Cancer Screening-CT Colonography Discontinued 01/07/2022 Colon Cancer Screening-DNA Stool Discontinued 01/07/2022 Colon Cancer Screening-FIT Discontinued 01/07/2022 Colon Cancer Screening-Sigmoidoscopy Discontinued 01/07/2022 Hepatitis C Screening Completed 10/15/2023 Pneumococcal vaccine <65 Aged Out No longer eligible based on patient's age to complete this topic Goals Goal Patient Goal Type Associated Problems [...] - 6.50 K/cumm Comment:Testing performed by : [address] [address] Imm gran abs 0.03 0.00 - 0.10 K/cumm JAIME Comment:Testing performed by : [address] [address] Lymphocyte abs 2.58 0.80 - 3.30 K/cumm JAIME Comment:Testing performed by : [address] [address] Monocyte abs 0.72 0.20 - 0.80 K/cumm [facility] Comment:Testing performed by : [address] [address] Eosinophil abs 0.15 0.00 - 0.50 K/cumm [facility] Comment:Testing performed by : [address] [address] Basophil abs 0.05 0.00 - 0.10 K/cumm [facility] Comment:Testing performed by : [address] [address] Neutrophil pct 59.3 % [facility] Comment: Interpretive Data Percent cell count reference ranges are not reported, since discordance with absolute values may lead to misinterpretation of CBC data. Current Interpretive Data was last revised on 2017. Testing performed by: [address] [address] Imm gran pct 0.3 % [facility] Comment: Interpretive Data Percent cell count reference ranges are not reported, since discordance with absolute values may lead to misinterpretation of CBC data. Current Interpretive Data was last revised on 2017. Testing performed by: [address] [address] Lymphocyte pct 29.8 % [facility] Comment: Interpretive Data Percent cell count reference ranges are not reported, since discordance with absolute values may lead to misinterpretation of CBC data. Current Interpretive Data was last revised on 2017. Testing performed by: [address] [address] Monocyte pct 8.3 % JAIME Comment: Interpretive Data Percent cell count reference ranges are not reported, since discordance with absolute values may lead to misinterpretation of CBC data. Current Interpretive Data was last revised on 2017. Testing performed by: [address] [address] Eosinophil pct 1.7 % JAIME Comment: Interpretive Data Percent cell count reference ranges are not reported, since discordance with absolute values may lead to misinterpretation of CBC data. Current Interpretive Data was last revised on 2017. Testing performed by: [address] [address] Basophil pct 0.6 % JAIME Comment: Interpretive Data Percent cell count reference ranges are not reported, since discordance with absolute values may lead to misinterpretation of CBC data. Current Interpretive Data was last revised on 2017. Testing performed by: [address] [address] Blood 01/25/2025 10:4 6 AM CDT 01/25/2025 12:48 PM CDT Tana PATTERSON LAB BLOOD ORDERABLES Halie l Result [facility] [address] [facility] [place] [address] * (ABNORMAL) CBC with auto differential (01/25/2025 10:46 AM CDT) WBC 8.65 3.80 - 9.90 K/cumm Comment:Testing performed by : [address] [address] Hgb 14.1 11.9 - 15.5 g/dL JAIME Comment:Testing performed by : [address] [place] [address] Hct 45.3 35.6 - 45.5 % JAIME Comment:Testing performed by : [address], [address] Plt 262 150 - 400 K/cumm JAIME Comment:Testing performed by : [address] [address] MPV 11.9 9.1 - 12.3 fL JAIME Comment:Testing performed by : [address], [address] RBC 5.54(H) 3.90 - 5.20 M/cumm JAIME Comment:Testing performed by : [address], [address] MCV 81.8 81.3 - 96.4 fL JAIME Comment:Testing performed by : [address] [address] MCH 25.5(L) 27.1 - 33.3 pg JAIME Comment:Testing performed by : [address], [address] MCHC 31.1(L) 32.3 - 35.7 g/dL JAIME Comment:Testing performed by : [address], [address] RDW CV 15.4(H) 11.1 - 14.9 % JAIME Comment:Testing performed by : [address], [address] RDW SD 45.8 35.7 - 48.1 fL JAIME Comment:Testing performed by : [address], [address] NRBC abs 0.00 0.00 - 0.01 K/cumm JAIME Comment:Testing performed by : [address], [address] Blood 01/25/2025 10:4 6 AM CDT 01/25/2025 12:48 PM CDT Tana PATTERSON LAB BLOOD ORDERABLES Halie l Result Performing Organization Address [facility] Co de Phone Number JAIME [facility] Department [place] [address] * eGFR (01/25/2025 10:40 AM CDT) eGFR [...] was last reviewed 2021. Testing performed by: [facility], [address] [place] [address]., [address] Blood 01/25/2025 10:4 0 AM CDT 01/25/2025 12:44 PM CDT Tana PATTERSON LAB BLOOD ORDERABLES Halie l Result Performing Organization Address [facility] Co de Phone Number JAIME [address] [facility] Department [place] [address] * (ABNORMAL) Lipid panel (01/25/2025 10:40 AM [...] last revised on 2018. Testing performed by: [address] [address] Triglycerides 116 <=149 mg/dL JAIME Comment: Interpretive [...] last revised on 2018. Testing performed by: [address] [address] HDL 46 >=40 mg/dL JAIME Comment: Interpretive [...] last revised on 2018. Testing performed by: [address] [address] LDL, calculated 181(H) <=129 mg/dL JAIME Comment: Interpretive Data Ages < or = 19 years Acceptable: <110 mg/dL Borderline high: 110-129 mg/dL High: >or= 130 mg/dL Ages > or = 20 years Optimal: <100 mg/dL Near optimal: 100-129 mg/dL Borderline high: 130-159 mg/dL High: >160 mg/dL Calculated using the Calvin LDL-C estimating equation. This equation was implemented [...] last revised on 2024. Testing performed by: [address] [address] Non-HDL Cholesterol 202 mg/dL JAIME Comment: Interpretive Data Ages < [...] last revised on 2018. Testing performed by: [address] [address] Chol/HDL ratio 5 JAIME Comment:Testing performed by : [address] [address] Blood 01/25/2025 10:4 0 AM CDT 01/25/2025 12:44 PM CDT us Wes Mckeon MD LAB BLOOD ORDERABLES Final Re sult JAIME AMARAL [address] [facility] Department of Laboratories [place], [place] [id number] * Comprehensive metabolic panel (01/25/2025 10:40 AM CDT) Sodium 142 135 - 145 mmol/L Comment:Testing performed by : [facility], [address] [place] [address], [place]., [address] Potassium, pl 4.3 3.3 - 4.9 mmol/L JAIME Comment:Testing performed by : [address], [place]., [address] Chloride 107 97 - 110 mmol/L JAIME Comment:Testing performed by : [address], [place]., [address] CO2 27 22 - 32 mmol/L JAIME Comment:Testing performed by : [address], [place]., [address] Anion gap 8 2 - 15 mmol/L JAIME Comment:Testing performed by : [address], [place]., [address] BUN 12 6 - 25 mg/dL JAIME Comment:Testing performed by : [address], [place]., [address] Creatinine 0.76 0.60 - 1.10 mg/dL JAIME Comment:Testing performed by : [address], [place]., [address] Glucose 80 70 - 199 mg/dL JAIME [...] last revised 2022. Testing performed by: [address], [place]., [address] Calcium 10.1 8.5 - 10.3 mg/dL JAIME Comment:Testing performed by : [address], [place]., [address] Bilirubin, total 0.4 0.1 - 1.2 mg/dL JAIME Comment:Testing performed by : [address] [address] Protein, pl 7.3 6.5 - 8.5 g/dL JAIME AMARAL Comment:Testing performed by : [address] [address] Albumin 3.7 3.5 - 5.0 g/dL JAIME AMARAL Comment:Testing performed by : [address] [address] Alk phos 101 40 - 130 Units/L AJIME AMARAL Comment:Testing performed by : [address] [address] ALT 16 7 - 45 Units/L JAIME Comment:Testing performed by : [address] [address] AST 23 10 - 45 Units/L JAIME Comment:Testing performed by : [address] [address] Blood 01/25/2025 10:4 0 AM CDT 01/25/2025 12:44 PM CDT Tana PATTERSON LAB BLOOD ORDERABLES Halie l Result [facility] [address] [facility] Department [place] [address] * Albumin Creatinine Ratio, Urine (01/25/2025 7:40 AM CDT) Albumin Ur <12.0 mg/L Comment: Interpretive Data No reference range established. Current interpretive data was last revised 2018. Testing performed by: [address] [address] Creatinine Ur 122.0 mg/dL JAIME AMARAL Comment: Interpretive Data No reference range established. Current interpretive data was last revised 2018. Testing performed by: [address] [address] Albumin Creatinine Ratio, Ur <10 1 - 29 mg/g JAIME AMARAL Comment:Testing performed by : [address] [address] Urine 01/25/2025 7:40 AM CDT 01/26/2025 8:49 AM CDT Result [facility] Tana PATTERSON LAB URINE ORDERABLES Halie l Result Performing Organization Address [facility] de Phone Number JAIME [address] [employer] [place] [address] * Hepatitis C antibody Blood (10/15/2023 10:26 [...] AM CDT 10/15/2023 12:53 PM CDT Result [facility] Tana PATTERSON LAB MICROBIOLOGY - GENERA L ORDERABLES Final Result Performing Organization Address [facility] de Phone Number JAIME [facility] [employer] [place] [address] * HM MAMMOGRAPHY (02/08/2023) Historical Provider HEALTH MAINTENANCE Final Result * HM PAP SMEAR (12/04/2022) Historical Provider HEALTH MAINTENANCE Final Result * Colonoscopy (01/07/2022) Anatomical Region Laterality Modality Other Historical Provider ENDOSCOPY PROCEDURES Halie l Result from Last 3 Months or Most Recently Relevant to Health Maintenance Additional Health Concerns Active Problems Noted Date Diagnosed Date Colorectal Pre-Surgical Plan 05/19/2024 Insurance [facility] [employer] [facility] [place] [address] [facility] Advance Directives For more information, please contact: [phone] * Full Code (Latest Code Status on File) Date Activated Date Inactivated Comments 06/01/2024 3:41 PM 06/05/2024 2:35 PM Care Teams Him Director Relationship Specialty Start Date End Date Tana Allen PA [address] [place] [address] PCP - General Family Medicine 01/02/21 Ezra Ventura MD [facility] [address] [place] [address] Consulting Physician Family Medicine 01/02/21 Jesus Barreto MD [address] [address] Referring Physician Gastroenterology 05/01/24 Bry Mosqueda MD [address] [phone] [place] [address] Surgeon Colon and Rectal Surgery 05/16/24 Kendra Logan MD [address] [address] Gynecology 06/23/24
--- OUTSIDE RECORDS SUMMARY | 2025-01-29 01:07 | XMS_ITS | Clinical Summary ---
Author Organization [facility] Address [address] [place] [address] Care Team Providers Care Credit Review Analyst Name Role Phone Tana Allen PA-C Primary Care Provider [phone] Allergies Active Allergy Reactions Criticality Noted Date Comments Sulfa Antibiotics Rash Low 10/15/2017 Medications VITAMIN D2, ERGOCALCIFEROL, [address] UNITS capsuleIndication s:Vitamin D deficiency TAKE 1 CAPSULE BY MOUTH WEEKLY 8 capsule 9 Active metoprolol succinate ER 25 MG 24 hr tabletIndications :Essential hypertension Take 1 tablet (25 mg total) by mouth daily. 90 tablet 2 1 Active losartan-hydroCHL OROthiazide 50-12.5 MG tabletIndications :Essential hypertension Take 1 tablet by mouth 2 (two) times a day. 90 tablet 2 Active famotidine (PEPCID) 20 MG tablet Take 1 tablet (20 mg total) by mouth 2 (two) times daily. 30 tablet 2 Active Active Problems Problem Noted Date Diagnosed Date Contact dermatitis 04/08/2018 HTN, goal below 140/90 02/01/2018 Resolved Problems Problem Noted Date Diagnosed Date Resolved Date Encounter for preventive health examination 02/01/2018 03/22/2020 Immunizations Immunization Administration Dates Next Due MODERNA COVID-19 (12+) MRNA, LNP-S, PF, 100 MCG/ 0.5 ML DOSE 11/12/2020,10/15/2020 Family History Medical History Relation Comments Cancer Father unsure which typ e Heart Disease Mother Relation Status Comments Father Mother Social History Tobacco Use Types Packs/Day Years Used Date Smoking Tobacco: Never Smokeless Tobacco: Never Alcohol Use Standard Drinks/Week Comments Yes 0 (1 standard drink = 0.6 oz pur e alcohol) occasioanlly Comments No Sex and Gender Information Value Date Recorded Sex Assigned at Female 08/01/2024 12:51 PM LOCOMOTIVE PIPE FITTER Legal Sex Female 7:19 PM CDT Gender Identity Not on file Sexual Orientation Not on file Last Filed Vital Signs Vital Sign Reading Time Taken Comments Blood Pressure 130/72 07/01/2022 6:03 PM LOCOMOTIVE PIPE FITTER Pulse 96 07/01/2022 6:03 PM LOCOMOTIVE PIPE FITTER Temperature 36.6 C (97.8 F) 07/01/2022 6:03 PM LOCOMOTIVE PIPE FITTER Respiratory Rate 18 07/01/2022 6:03 PM LOCOMOTIVE PIPE FITTER Oxygen Saturation 96% 07/01/2022 6:03 PM LOCOMOTIVE PIPE FITTER Inhaled Oxygen Concentration - - Weight 113.4 kg (250 lb) 10/04/2021 2:48 PM CDT Height 157.5 cm (5' 2) 05/18/2022 1:39 PM LOCOMOTIVE PIPE FITTER Body Mass Index 45.73 10/04/2021 2:48 PM CDT Plan of Treatment Health Maintenance Due Date Last Done Comments Cervical Cancer Screening Pap Smear (Age 30 to 64) Every 3 Years 1962 Colorectal Cancer Screening Colonoscopy (10 Years) 1962 Annual Physical 1965 Hepatitis C 1980 Cervical Cancer Screening Pap with HPV Testing (Age 30 to 64) Every 5 Years 1992 Cervical Cancer Screening with HPV 1992 Pneumococcal Vaccine: 50+ Years (1 of 1 - PCV) 2012 Zoster Vaccines (1 of 2) 2012 COVID-19 Vaccine (3 - 2023- season) 2024 11/12/2020, 10/15/2020 Mammogram Screening 08/17/2026 08/17/2024, 08/05/2023, 02/08/2023, Additional history exists DTaP, Tdap and Td Vaccines (3 - Td or Tdap) 01/06/2031 01/06/2021, 03/03/2013, 12/16/2003, Additional history exists RSV Immunization or 60+ Years (1 - 1-dose 75+ series) 2037 Meningococcal Vaccine Aged Out 10/16/1985 No manohar tracy eligible based on patient's age to complete this topic Meningococcal B Vaccine Aged Out No l onger eligible based on patient's age to complete this topic RSV Immunizations Under 20 Months Aged Out No longer eligible based on patient's age to complete this topic Procedures Procedure Name Priority Date/Time Associated Diagnosis Comments MG SCREENING W JOSÉ LUIS JAVED DIGI Routine 08/17/2024 8:15 AM LOCOMOTIVE PIPE FITTER Visit for screening mammogram from Last 3 Months or Most Recently Relevant to Health Maintenance Results * MG SCREENING W JOSÉ LUIS JAVED DIGI (08/17/2024 8:15 AM LOCOMOTIVE PIPE FITTER) Anatomical Region Laterality Modality Breast Bilateral Mammography 08/17/2024 9:38 AM LOCOMOTIVE PIPE FITTER Impressions 08/17/2024 9:46 AM LOCOMOTIVE PIPE FITTER ===== IMPRESSION: ===== 1. Stable mammographic appearance with no new findings to suggest malignancy in either breast. Assessment: ACR BI-RADS 2 - BENIGN FINDING(S) Recommendation: 1:Routine Screening Bilateral Comments: Ordered By: KENDRA LOGAN Interpreted By: Silvia Lopez, 08/17/2024 9:38 AM Narrative 08/17/2024 9:46 AM LOCOMOTIVE PIPE FITTER [facility] [address] [place] [address] EXAMINATION: Digital bilateral screening mammogram with 3-D tomosynthesis EXAM DATE/TIME: 08/17/2024 7:57 AM REASON FOR EXAM: Routine screening COMPARISON: 08/05/2023. 02/08/2023. 01/15/2023 Technique: Digital screening mammography of both breasts was performed in addition to 3-D Tomosynthesis technique. This study was read with the assistance of a computer-aided detection system. Tissue density: The breasts are almost entirely fatty. Findings: There is no new focal asymmetry, dominant mass lesion, area of skin thickening, or cluster of suspicious appearing calcifications in either breast to suggest malignancy. Similar small benign prior described nodules. Benign calcifications. us Kendra Logan MD MAMMO Final Res ult from Last 3 Months or Most Recently Relevant to Health Maintenance Insurance [facility] Care Teams Credit Review Analyst Relationship Specialty Start Date End Date Tana Allen PA-C [address] [facility] [place] [address] PCP - General PHYSICIAN INKING MACHINE TENDER 10/04/21
--- OUTSIDE RECORDS SUMMARY | 2025-01-29 01:07 | XMS_ITS | Encounter Summary ---
Author Organization [facility] Address [address] [place] [address] Care Team Providers Care Sales And Leasing Agent Name Role Phone Tana Allen Primary Care Provider [phone] Ezra Ventura MD Unavailable [phone] Jesus Barreto MD Unavailable [phone] Bry Mosqueda MD Unavailable [phone] Kendra Logan MD Unavailable [phone] Encounter Details Date Type Department Care Team (Latest Contact Info) Description 01/25/2025 Results Follow-Up [facility] Family Medicine [address] [id number] Tana Allen PA [address] [phone] CBC with auto differential, Comprehensive metabolic panel, Differential, auto, Additional followed-up results: 2 Social History Tobacco Use Types Packs/Day Years Used Date Smoking Tobacco: Never Passive Smoke Exposure: Never Smokeless Tobacco: Never AUDIT-C Answer Date Recorded Q1: How often [...] on file Legal Sex Female 8:58 PM AUTOMATION QA ANALYST Gender Identity Not on file Sexual Orientation Not on file documented as of this encounter Miscellaneous Notes * Result Encounter Note - Jeromy Lynne LPN - 01/26/2025 10:40 AM CDT Pt informed, offered appointment. She states she will call back in the fall to schedule an appointment. documented in this encounter Plan of Treatment Not on file documented as of this encounter Goals Goal Patient Goal Type Associated Problems Recent Progress Patient-Stated? Author Colorectal Pre-Surgical Steps Care Plan Colorectal Pre-Surgical Plan Bere Stephens RN documented as of this encounter Visit Diagnoses Not on filedocumented in this encounter Additional Health Concerns Active Problems Noted Date Diagnosed Date Colorectal Pre-Surgical Plan 05/19/2024 documented as of this encounter Care Teams Sales And Leasing Agent Relationship Specialty Start Date End Date Tana Allen PA [address] [place] [id number] PCP - General Family Medicine 01/02/21 Ezra Ventura MD [address] [place] [phone] Consulting Physician Family Medicine 01/02/21 Jesus Barreto MD [address] [address] Referring Physician Gastroenterology 05/01/24 Bry Mosqueda MD [phone] [place] [address] Surgeon Colon and Rectal Surgery 05/16/24 Kendra Logan MD [facility] [address] [address] Gynecology 06/23/24 documented as of this encounter
[2025-01-29 07:20] VITALS: BP 171/82; PULSE 94; RESP 18; TEMP 36.8; O2SAT 98
--- NOTE | 2025-01-29 07:22 | P.HP_ITS ---
History of Present Illness History of Present Illness Consent: Risks, benefits, and alternatives have been discussed and questions answered. Patient agrees to proceed with procedure. Chief complaint: post menopausal bleeding Narrative: Josette Soliz is a 64 year old female with postmenopausal bleeding. It was recommended to undergo D&C hysteroscopy for further evaluation. Risks of infection, bleeding, perforation, and possible pathology are reviewed. Patient voices understanding and agrees to proceed. Patient has had multiple D&C hysteroscopies over the past 7 years and polyps after found each time. Review of Systems Review of Systems: not repeated day of surgery; patient states no changes in status PMFSH Past Medical History Medical History (Updated 01/29/25 @ 07:24 by Kendra Logan MD) Lichen planus Hypercholesterolemia Morbid obesity (normal spontaneous vaginal delivery) X3 HTN (hypertension) Surgical History Surgical History (Updated 01/29/25 @ 07:24 by Kendra Logan MD) H/O exploratory laparotomy With fimbrioplasty and adhesiolysis in the History of hysteroscopy 2015, 2017 with myomectomy, 2019 with polyps and myomectomy, 2021 with po lyps, 2023 polyps Social History Social History Smoking status: Never smoker Alcohol intake: current Drinks per week: 1 Alcohol use details: 2 PER MONTH Substance use: never Substance use type: does not use Living arrangements: with family Spiritual care concerns: No Meds Home Medications and Allergies Home Medications ?Medication ?Instructions ?Recorded ?Confirmed ?Type losartan 50 mg-hydrochlorothiazide 1 tablet PO QAM 02/17/22 01/23/25 History 12.5 mg tablet metoprolol succinate 25 mg 25 mg PO QAM 02/17/22 01/23/25 History tablet,extended release 24 hr Allergies Allergy/AdvReac Type Severity Reaction Status Date / Time Sulfa (Sulfonamide Allergy Severe HIVES, Verified 01/23/25 15:25 Antibiotics) ITCHING Exam Const: General: healthy appearing and alert Orientation/consciousness: patient oriented x3 Resp: Effort & Inspection: normal respiratory effort : External Female Exam: normal external appearance Speculum Exam - Vagina: normal appearance of the vagina and normal vaginal discharge Speculum Exam - Cervix: normal appearance of the cervix Bimanual exam- vagina & uterus: uterine size normal and consistency normal Bimanual Exam- Adnexa, other: normal adnexae and No adnexal tenderness Neuro: General: patient oriented x3 Assessment and Plan Assessment and plan (1) Post-menopausal bleeding: Code(s): N95.0 - Postmenopausal bleeding Status: Acute Assessment and Plan: Plan to proceed with D&C hysteroscopy
--- NOTE | 2025-01-29 07:22 | WPDHPUPDATE1 ---
History and Physical Update Update Date/Time: 01/29/25 07:22 History and Physical has been reviewed, including an updated exam of the patient. There are NO changes in the patient's condition. Risks, benefits, and alternatives have been discussed and questions answered. Patient agrees to proceed with procedure.
[2025-01-29] MEDS: ACETAMINOPHEN 500 MG TABLET 1000 MG PO (07:30)
[2025-01-29] MEDS: LACTATED RINGERS 1,000 ML 30 ML IV CONT (07:45)
--- NOTE | 2025-01-29 08:25 | WPDANESEPPF ---
Anes - Initial Pre Proc Eval Procedure: Operation Date: 01/29/25 09:00 Proposed Procedures p Hysteroscopy Dilation and Curettage - Kendra Logan MD Date/Time: 01/29/25 08:25 Surgeon: Kendra Logan MD Pre Op Diagnosis: post menopausal bleeding Patient Data Age: 64 Gender: F Height: 1.6 m Weight: 114.4 kg Last Vital Signs Temp 98.2 F 01/29/25 07:20 Pulse 94 01/29/25 07:20 Resp 18 01/29/25 07:20 BP 171/82 H 01/29/25 07:20 Pulse Ox 98 01/29/25 07:20 O2 Del Method Room Air 01/29/25 07:20 Allergies Allergy/AdvReac Type Severity Reaction Status Date / Time Sulfa (Sulfonamide Allergy Severe HIVES, Verified 01/23/25 15:25 Antibiotics) ITCHING Home Medications ?Medication ?Instructions ?Recorded ?Confirmed ?Type losartan 50 mg-hydrochlorothiazide 1 tablet PO QAM 02/17/22 01/29/25 History 12.5 mg tablet metoprolol succinate 25 mg 25 mg PO QAM 02/17/22 01/29/25 History tablet,extended release 24 hr Patient hx anesthesia problems: post op nausea/vomiting Family hx anesthesia problems: none Results Review: All pre-operative results and documents have been reviewed as part of the pre-operative evaluation. [facility] Past Medical History Medical History (Updated 01/29/25 @ 07:24 by Kendra Logan MD) Lichen planus Hypercholesterolemia Morbid obesity (normal spontaneous vaginal delivery) X3 HTN (hypertension) Surgical History Surgical History (Updated 01/29/25 @ 07:24 by Kendra Logan MD) H/O exploratory laparotomy With fimbrioplasty and adhesiolysis in the 1980s History of hysteroscopy 2015, 2018 with myomectomy, 2019 with polyps and myomectomy, 2021 with polyps, 2023 polyps Social History Social History Smoking status: Never smoker Alcohol intake: current Drinks per week: 1 Alcohol use details: 2 PER MONTH Substance use: never Substance use type: does not use Living arrangements: with family Spiritual care concerns: No Anes - Eval Final PreProcedure Day of Procedure 01/29/25 08:25 Patient weight: morbidly obese Heart: regular rate and rhythm Lungs: clear to auscultation Airway: Mallampati scale class III Neurological: alert and oriented Last oral intake: >/= 8 hours ASA classification: III Emergent: no Anesthetic plan: proceed Anesthesia type and monitoring: general GIVS and standard monitoring Results Review: All pre-operative results and documents have been reviewed as part of the pre-operative evaluation. Informed Consent: The patient's anesthetic plan and its attendant risks and benefits were discussed with the patient/family/POA. Questions were solicited and answers provided to the satisfaction of the patient/family/POA.
[2025-01-29] MEDS: KETOROLAC 30 MG/ML VIAL (*BKC) IV PUSH (09:22)
--- NOTE | 2025-01-29 09:24 | S_PTH ---
PATIENT: Josette Soliz LOC: [facility] U#:[id number] AGE/SX: 64/F ROOM: RE01/29/[address]: Kendra Logan MD : 1960 BED: DIS: 01/29/2025 SPEC #: [id number] RECD: 01/29/25 10:20 STATUS: BUBBA REQ #: [id number] BOO: 01/29/25 09:[address]: Kendra Logan DEPT: [facility] Surgical RECD BY: Ani Cid ENTERED: 01/29/25 10:20 SP TYPE: Surgical OTHR DR: Tana Allen, PA Tissues: A - Endometrial Curettings Procedures: Hematoxylin and Eosin Stain Gross and Microscopic Level 4
[2025-01-29 09:31] VITALS: BP 121/87; PULSE 86; RESP 16; O2SAT 98
--- NOTE | 2025-01-29 09:33 | W.PM.PROC2 ---
Procedure Note - Detailed Date of Procedure 01/29/25 Pre-op Diagnosis post menopausal bleeding Post-op Diagnosis Same Procedure Performed D&C hysteroscopy Surgeon Kendra Logan MD Anesthesia MAC Findings Uterus sounds to 7cm and appears grossly atrophic. There are multiple subcentimeter fibroids as well as 2 anterior fibroids. I was able to visualize fully around the fibroids and no other lesions were noted. Description of Procedure The patient is taken to the operating room and placed under anesthesia in the dorsal lithotomy position. She was prepped and draped in usual sterile fashion. The bivalve speculum was placed in the vagina and the cervix was grasped on the anterior lip with a tenaculum. The uterus is sounded to 7cm. The diagnostic hysteroscope was placed and with the above-stated findings it is removed. The sharp curette is used to curette the endometrium until a good uterine cry was noted in all areas. Minimal material was obtained consistent with the atrophic appearance. Estimated Blood Loss 5 Drains No Packing No Pathology Yes (Endometrial curettings) Complications No immediate complications Condition Stable Disposition PACU
--- NOTE | 2025-01-29 09:33 | SUR.OPER ---
Fluid Deficit 70 ml
[2025-01-29 10:00] VITALS: BP 162/83; PULSE 66; RESP 20
[2025-01-29 10:30] VITALS: BP 147/80; PULSE 67; RESP 20
[2025-01-29 11:00] VITALS: BP 155/81; PULSE 64; RESP 20
== END 2025-01-29 11:07 | disposition home or self-care (01) ==
PROVIDERS: PCP Physician Assistant; Visit Provider Obstetrics & Gynecology Gynecology
PROC: 0U5B8ZZ Destruction of Endometrium, Via Natural or Artificial Opening Endoscopic (ICD-10-PCS; CPT 58563; principal; 2025-01-29 09:00)
DX: N95.0 Postmenopausal bleeding (principal); E66.01 Morbid (severe) obesity due to excess calories; Z68.41 Body mass index [BMI] 40.0-44.9, adult
CPT/HCPCS: 58558; 88305; A9270; J1885; J2003; J2250; J2405; J2704; J3010; J7120